=== PATIENT | female | born 1965 | race Caucasian/White ===

== ENCOUNTER 2021-01-03 16:18 | Inpatient (IN) | payer OTHER ==
[~2021-01-03] VITALS: Ht 185.4 cm; Wt 136.5 kg
[~2021-01-03 16:18] MED LIST: DEXAMETHASONE SOD PHOS INJ 4 MG/ML SDV ONE; LIDOCAINE HCL 2% LOCAL INJ 5 ML SDV VIAL INJ ONE; ONDANSETRON HCL INJ 2MG/ML 2ML 2 MG/ML VIAL ONE; POVIDONE IODINE 0.05% 0.05 % ML PO ONE; PROPOFOL IV EMULSION 10 MG/ML 20 ML VIAL ONE; SEVOFLURANE INHAL SOLN 250 ML PEN BTL ONE
[2021-01-03] MEDS ORDERED: SODIUM CHLORIDE 0.9% 1000ML 1,000 ML IV SCH (18:00)
[2021-01-03] MEDS ORDERED: ACETAMINOPHEN 325 MG TAB PO ONE (18:00)
[2021-01-03] MEDS ORDERED: PIPERACILLIN/TAZOBACTAM 3.375 GM in SODIUM CHLORIDE 0.9% 50ML 50 ML IV ONE (18:00)
[2021-01-03] MEDS ORDERED: ACETAMINOPHEN 325 MG TAB ONE (18:06)
[2021-01-03] MEDS ORDERED: SODIUM CHLORIDE 0.9% 50ML 50 ML ONE (18:06)
[2021-01-03] MEDS ORDERED: IBUPROFEN 400 MG TAB PO STA (18:07)
[2021-01-03] MEDS ORDERED: SODIUM CHLORIDE 0.9% 250ML 250 ML ONE (18:07)
[2021-01-03] MEDS ORDERED: PIPERACILLIN/TAZOBACTAM 3.375 GM VIAL ONE (18:07)
[2021-01-03] MEDS ORDERED: SODIUM CHLORIDE 0.9% 1000ML 1,000 ML ONE (18:07)
[2021-01-03] MEDS ORDERED: Vancomycin IV 1 GM VIAL ONE (18:08)
[2021-01-03] MEDS ORDERED: IBUPROFEN 400 MG TAB ONE (18:14)
[2021-01-03] MEDS: Vancomycin IV 1 GM in SODIUM CHLORIDE 0.9% 250ML 250 ML IV SCH (18:47)
[2021-01-03] MEDS ORDERED: INSULIN REGULAR, HUMAN 100 UNIT/1 ML SQ ONE (20:00)
[2021-01-03 22:22] VITALS: BP 141/73
[2021-01-03] MEDS ORDERED: DEXTROSE 50% SYRINGE 50 ML IV PRN (22:30)
[2021-01-03 22:34] VITALS: BP 141/73
[2021-01-03 23:00] VITALS: BP 141/73
[2021-01-04] VITALS (8 sets, daily range): BP systolic 128–164; BP diastolic 59–77
[2021-01-04] MEDS: SODIUM CHLORIDE 0.9% 1000ML 1,000 ML IV SCH ×3 (00:07→11:15)
[2021-01-04] MEDS: INSULIN LISPRO 100 UNIT/1 ML 3ML VIAL SQ SCH ×5 (00:08→21:15)
[2021-01-04] MEDS ORDERED: LOSARTAN POTAS100 MG PO (02:14)
[2021-01-04] MEDS ORDERED: METOPROLOL TART25 MG PO (02:14)
[2021-01-04] MEDS ORDERED: TRICOR145 MG PO (02:14)
[2021-01-04] MEDS ORDERED: SIMVASTATIN40 MG PO (02:14)
[2021-01-04] MEDS ORDERED: ASPIRIN81 MG PO (02:14)
[2021-01-04] MEDS ORDERED: BUPROPION HCL150 M2 PO (02:14)
[2021-01-04] MEDS ORDERED: METFORMIN HCL500 M2 PO (02:14)
[2021-01-04] MEDS: Vancomycin IV 1 GM in SODIUM CHLORIDE 0.9% 250ML 250 ML IV SCH ×2 (06:50→17:15)
[2021-01-04] MEDS: METFORMIN HCL 500 MG TAB CR PO SCH ×2 (08:00→16:27)
[2021-01-04 09:47] LABS: BASOPHILS # (AUTO) 0.1 (0.0-0.1); BASOPHILS % 0.3 % (0.0-1.0); EOSINOPHILS # (AUTO) 0.1 (0.0-0.4); EOSINOPHILS % 0.5 % (0.0-6.0); HEMATOCRIT 40.6 % (34.2-44.1); HEMOGLOBIN 13.3 g/dL (12.0-16.0); LYMPHOCYTES # (AUTO) 1.2 (1.0-3.2); LYMPHOCYTES % 7.6 % (18.0-39.1); MEAN CORPUSCULAR HEMOGLOBIN 29.5 pg (28-32); MEAN CORPUSCULAR HGB CONC 32.8 g/dL (31-35); MONOCYTES # (AUTO) 1.2 (0.2-0.8); MONOCYTES % 7.5 % (4.4-11.3); NEUTROPHILS % 83.2 % (38.7-80.0); PLATELET COUNT 216 x10e3/uL (140-360); RED BLOOD COUNT 4.51 x10e6/uL (3.6-5.1); RED CELL DISTRIBUTION WIDTH 11.9 % (11.7-14.4)
[2021-01-04 10:07] LABS: ANION GAP 18.4 mmol/L (8-16); CALCIUM 9.5 mg/dL (8.4-10.2); CREATININE, SERUM 0.99 mg/dL (0.57-1.11); POTASSIUM 4.4 mmol/L (3.5-5.1)
[2021-01-04] MEDS: INSULIN GLARGINE 100 UNITS/ML VIAL SQ SCH (10:30)
[2021-01-04] MEDS: SALMETEROL/FLUTICASONE 250/50 INH SCH ×2 (13:30→19:46)
[2021-01-04] MEDS: ACETAMINOPHEN 325 MG TAB PO PRN (13:31)
[2021-01-04] MEDS: PIPERACILLIN/TAZOBACTAM 3.375 GM in SODIUM CHLORIDE 0.9% 50ML 50 ML IV SCH ×2 (14:00→21:53)
[2021-01-04] MEDS: BUPROPION HCL SR 150 MG TAB PO SCH (16:59)
[2021-01-04] MEDS: ENOXAPARIN SOD INJ 40 MG/0.4 ML SYR SC SCH (17:00)
[2021-01-04] MEDS: METOPROLOL TARTRATE 25 MG TAB PO SCH (17:00)
[2021-01-04] MEDS: HYDROCODONE/APAP 5MG-325MG TAB PO PRN (18:28)
[2021-01-04] MEDS ORDERED: LACTATED RINGER'S 1,000 ML INJ ONE (19:15)
[2021-01-04] MEDS ORDERED: LOSARTAN POTASSIUM 100 MG TAB PO ONE (19:15)
[2021-01-04] MEDS: SIMVASTATIN 40 MG TAB PO SCH (21:50)
[2021-01-05] VITALS (8 sets, daily range): BP systolic 114–147; BP diastolic 59–82
[2021-01-05] MEDS: HYDROCODONE/APAP 5MG-325MG TAB PO PRN (00:30)
[2021-01-05 05:30] LABS: BASOPHILS # (AUTO) 0.1 (0.0-0.1); BASOPHILS % 0.4 % (0.0-1.0); EOSINOPHILS # (AUTO) 0.2 (0.0-0.4); EOSINOPHILS % 1.4 % (0.0-6.0); HEMATOCRIT 38.3 % (34.2-44.1); HEMOGLOBIN 12.7 g/dL (12.0-16.0); LYMPHOCYTES # (AUTO) 1.8 (1.0-3.2); LYMPHOCYTES % 15.2 % (18.0-39.1); MEAN CORPUSCULAR HEMOGLOBIN 29.8 pg (28-32); MEAN CORPUSCULAR HGB CONC 33.2 g/dL (31-35); MEAN CORPUSCULAR VOLUME 89.9 fL (81-99); MONOCYTES # (AUTO) 1.4 (0.2-0.8); MONOCYTES % 11.7 % (4.4-11.3); NEUTROPHILS # (AUTO) 8.5 (2.1-6.9); NEUTROPHILS % 70.2 % (38.7-80.0); PLATELET COUNT 202 x10e3/uL (140-360); RED BLOOD COUNT 4.26 x10e6/uL (3.6-5.1); RED CELL DISTRIBUTION WIDTH 11.9 % (11.7-14.4)
[2021-01-05 06:05] LABS: CALCIUM 8.8 mg/dL (8.4-10.2); CREATININE, SERUM 0.88 mg/dL (0.57-1.11)
[2021-01-05] MEDS: PIPERACILLIN/TAZOBACTAM 3.375 GM in SODIUM CHLORIDE 0.9% 50ML 50 ML IV SCH ×2 (06:15→14:00)
[2021-01-05] MEDS ORDERED: SODIUM CHLORIDE 0.9% 50ML 50 ML ONE (06:16)
[2021-01-05] MEDS: Vancomycin IV 1 GM in SODIUM CHLORIDE 0.9% 250ML 250 ML IV SCH ×2 (06:54→17:31)
[2021-01-05] MEDS: INSULIN LISPRO 100 UNIT/1 ML 3ML VIAL SQ SCH ×4 (07:30→21:30)
[2021-01-05] MEDS: METFORMIN HCL 500 MG TAB CR PO SCH (08:00)
[2021-01-05] MEDS: ACETAMINOPHEN 325 MG TAB PO PRN (08:15)
[2021-01-05] MEDS: METOPROLOL TARTRATE 25 MG TAB PO SCH ×2 (09:00→17:00)
[2021-01-05] MEDS: BUPROPION HCL SR 150 MG TAB PO SCH ×2 (09:00→17:00)
[2021-01-05] MEDS: FENOFIBRATE 134 MG TAB PO SCH (09:00)
[2021-01-05] MEDS: LOSARTAN POTASSIUM 100 MG TAB PO SCH (09:00)
[2021-01-05] MEDS: ASPIRIN 81 MG CHEW TAB PO SCH (09:00)
[2021-01-05] MEDS: INSULIN GLARGINE 100 UNITS/ML VIAL SQ SCH (09:00)
[2021-01-05] MEDS ORDERED: CHOLESTYRAMINE 4 GM PACKET PO ONE (16:30)
[2021-01-05] MEDS: ENOXAPARIN SOD INJ 40 MG/0.4 ML SYR SC SCH (17:00)
[2021-01-05] MEDS: SALMETEROL/FLUTICASONE 250/50 INH SCH (19:42)
[2021-01-05] MEDS ORDERED: INSULIN GLARGINE 100 UNITS/ML VIAL SQ ONE (20:00)
[2021-01-05] MEDS: SIMVASTATIN 40 MG TAB PO SCH (22:00)
[2021-01-05] MEDS: METRONIDAZOLE 500MG/NS 100ML 100 ML IV SCH (22:10)
[2021-01-05] MEDS: CEFEPIME 1 GM in SODIUM CHLORIDE 0.9% 50ML 50 ML IV SCH (23:20)
[2021-01-06] VITALS (8 sets, daily range): BP systolic 116–149; BP diastolic 55–85
[2021-01-06 05:10] LABS: BASOPHILS # (AUTO) 0.1 (0.0-0.1); BASOPHILS % 0.5 % (0.0-1.0); EOSINOPHILS # (AUTO) 0.2 (0.0-0.4); EOSINOPHILS % 1.5 % (0.0-6.0); HEMATOCRIT 36.9 % (34.2-44.1); HEMOGLOBIN 12.1 g/dL (12.0-16.0); LYMPHOCYTES % 18.8 % (18.0-39.1); MEAN CORPUSCULAR HEMOGLOBIN 29.4 pg (28-32); MEAN CORPUSCULAR HGB CONC 32.8 g/dL (31-35); MEAN CORPUSCULAR VOLUME 89.6 fL (81-99); MONOCYTES # (AUTO) 1.2 (0.2-0.8); MONOCYTES % 11.4 % (4.4-11.3); NEUTROPHILS # (AUTO) 7.3 (2.1-6.9); NEUTROPHILS % 67.2 % (38.7-80.0); PLATELET COUNT 215 x10e3/uL (140-360); RED BLOOD COUNT 4.12 x10e6/uL (3.6-5.1); RED CELL DISTRIBUTION WIDTH 11.9 % (11.7-14.4)
[2021-01-06] MEDS: METRONIDAZOLE 500MG/NS 100ML 100 ML IV SCH ×3 (05:19→21:25)
[2021-01-06 05:35] LABS: INR 1.05; PROTHROMBIN TIME 13.9 seconds (11.9-14.5)
[2021-01-06 05:36] LABS: PARTIAL THROMBOPLASTIN TIME 23.7 seconds (23.8-35.5)
[2021-01-06 05:43] LABS: ANION GAP 13.9 mmol/L (8-16); CALCIUM 8.6 mg/dL (8.4-10.2); CREATININE, SERUM 0.77 mg/dL (0.57-1.11); POTASSIUM 3.9 mmol/L (3.5-5.1)
[2021-01-06] MEDS: ACETAMINOPHEN 325 MG TAB PO PRN (06:00)
[2021-01-06] MEDS: CEFEPIME 1 GM in SODIUM CHLORIDE 0.9% 50ML 50 ML IV SCH ×3 (06:25→21:25)
[2021-01-06] MEDS: Vancomycin IV 1 GM in SODIUM CHLORIDE 0.9% 250ML 250 ML IV SCH ×2 (06:43→18:00)
[2021-01-06] MEDS: INSULIN LISPRO 100 UNIT/1 ML 3ML VIAL SQ SCH ×4 (07:30→21:00)
[2021-01-06 08:27] LABS: EOSINOPHILS % (MANUAL) 3 % (0-7); LYMPHOCYTES % (MANUAL) 20 % (19-48); MONOCYTES % (MANUAL) 11 % (3.4-9.0); NEUTROPHILS % (MANUAL) 65 % (40-74)
[2021-01-06 08:30] LABS: PLATELET ESTIMATE ADEQUATE; PLATELET MORPHOLOGY COMMENT NORMAL; RBC MORPHOLOGY COMMENT NORMAL
[2021-01-06] MEDS: INSULIN GLARGINE 100 UNITS/ML VIAL SQ SCH ×2 (08:30→21:00)
[2021-01-06] MEDS: ASPIRIN 81 MG CHEW TAB PO SCH (09:00)
[2021-01-06] MEDS: METOPROLOL TARTRATE 25 MG TAB PO SCH ×2 (09:00→17:33)
[2021-01-06] MEDS: LOSARTAN POTASSIUM 100 MG TAB PO SCH (09:00)
[2021-01-06] MEDS: BUPROPION HCL SR 150 MG TAB PO SCH ×2 (09:00→17:32)
[2021-01-06] MEDS: METFORMIN HCL 500 MG TAB CR PO SCH (09:00)
[2021-01-06] MEDS: FENOFIBRATE 134 MG TAB PO SCH (09:00)
[2021-01-06] MEDS: LACTOBACILLUS ACIDOPHILUS CAPSULE PO SCH ×2 (12:00→16:36)
[2021-01-06] MEDS ORDERED: GADOBENATE DIMEGLUMINE 1 ML IV ONE (13:34)
[2021-01-06] MEDS: ENOXAPARIN SOD INJ 40 MG/0.4 ML SYR SC SCH (17:32)
[2021-01-06] MEDS ORDERED: POVIDONE IODINE 10% 120 ML BTL EXT PRN (19:00)
[2021-01-06] MEDS: SIMVASTATIN 40 MG TAB PO SCH (21:00)
[2021-01-06] MEDS: HYDROCODONE/APAP 5MG-325MG TAB PO PRN (21:49)
[2021-01-07] VITALS (8 sets, daily range): BP systolic 138–157; BP diastolic 60–95
[2021-01-07 05:01] LABS: BASOPHILS # (AUTO) 0.1 (0.0-0.1); BASOPHILS % 0.5 % (0.0-1.0); EOSINOPHILS # (AUTO) 0.2 (0.0-0.4); EOSINOPHILS % 2.1 % (0.0-6.0); HEMATOCRIT 36.8 % (34.2-44.1); LYMPHOCYTES # (AUTO) 2.4 (1.0-3.2); LYMPHOCYTES % 23.2 % (18.0-39.1); MEAN CORPUSCULAR HEMOGLOBIN 29.2 pg (28-32); MEAN CORPUSCULAR HGB CONC 32.6 g/dL (31-35); MEAN CORPUSCULAR VOLUME 89.5 fL (81-99); MONOCYTES # (AUTO) 0.9 (0.2-0.8); MONOCYTES % 8.7 % (4.4-11.3); NEUTROPHILS # (AUTO) 6.6 (2.1-6.9); NEUTROPHILS % 64.5 % (38.7-80.0); PLATELET COUNT 227 x10e3/uL (140-360); RED BLOOD COUNT 4.11 x10e6/uL (3.6-5.1); RED CELL DISTRIBUTION WIDTH 11.9 % (11.7-14.4)
[2021-01-07] MEDS: CEFEPIME 1 GM in SODIUM CHLORIDE 0.9% 50ML 50 ML IV SCH (05:25)
[2021-01-07] MEDS: METRONIDAZOLE 500MG/NS 100ML 100 ML IV SCH (05:25)
[2021-01-07 05:28] LABS: ANION GAP 12.9 mmol/L (8-16); CALCIUM 8.7 mg/dL (8.4-10.2); CREATININE, SERUM 0.79 mg/dL (0.57-1.11); POTASSIUM 3.9 mmol/L (3.5-5.1)
[2021-01-07] MEDS: Vancomycin IV 1 GM in SODIUM CHLORIDE 0.9% 250ML 250 ML IV SCH (06:00)
[2021-01-07 07:12] LABS: EOSINOPHILS % (MANUAL) 1 % (0-7); LYMPHOCYTES % (MANUAL) 17 % (19-48); MONOCYTES % (MANUAL) 8 % (3.4-9.0); MYELOCYTES % (MANUAL) 2 % (0-0); NEUTROPHILS % (MANUAL) 68 % (40-74); PLATELET ESTIMATE ADEQUATE; PLATELET MORPHOLOGY COMMENT NORMAL; RBC MORPHOLOGY COMMENT NORMAL
[2021-01-07] MEDS: SALMETEROL/FLUTICASONE 250/50 INH SCH (07:20)
[2021-01-07] MEDS: ASPIRIN 81 MG CHEW TAB PO SCH (08:45)
[2021-01-07] MEDS: METFORMIN HCL 500 MG TAB CR PO SCH (08:46)
[2021-01-07] MEDS: LOSARTAN POTASSIUM 100 MG TAB PO SCH (08:46)
[2021-01-07] MEDS: METOPROLOL TARTRATE 25 MG TAB PO SCH ×2 (08:47→16:33)
[2021-01-07] MEDS: LACTOBACILLUS ACIDOPHILUS CAPSULE PO SCH ×2 (08:47→16:33)
[2021-01-07] MEDS: BUPROPION HCL SR 150 MG TAB PO SCH ×2 (08:47→16:33)
[2021-01-07] MEDS: FENOFIBRATE 134 MG TAB PO SCH (08:49)
[2021-01-07] MEDS: ACETAMINOPHEN 325 MG TAB PO PRN (09:04)
[2021-01-07] MEDS: COLLAGENASE OINTMENT 30 GM TUBE TP SCH (09:07)
[2021-01-07] MEDS: INSULIN LISPRO 100 UNIT/1 ML 3ML VIAL SQ SCH ×4 (10:24→21:51)
[2021-01-07] MEDS: INSULIN GLARGINE 100 UNITS/ML VIAL SQ SCH ×2 (10:25→21:00)
[2021-01-07] MEDS: ENOXAPARIN SOD INJ 40 MG/0.4 ML SYR SC SCH (16:33)
[2021-01-07] MEDS: SIMVASTATIN 40 MG TAB PO SCH (20:43)
[2021-01-08] VITALS (8 sets, daily range): BP systolic 115–145; BP diastolic 52–82
[2021-01-08 05:22] LABS: BASOPHILS # (AUTO) 0.1 (0.0-0.1); BASOPHILS % 0.5 % (0.0-1.0); EOSINOPHILS # (AUTO) 0.2 (0.0-0.4); HEMATOCRIT 36.4 % (34.2-44.1); HEMOGLOBIN 12.1 g/dL (12.0-16.0); LYMPHOCYTES # (AUTO) 2.9 (1.0-3.2); LYMPHOCYTES % 23.7 % (18.0-39.1); MEAN CORPUSCULAR HEMOGLOBIN 29.4 pg (28-32); MEAN CORPUSCULAR HGB CONC 33.2 g/dL (31-35); MEAN CORPUSCULAR VOLUME 88.6 fL (81-99); MONOCYTES % 8.3 % (4.4-11.3); NEUTROPHILS # (AUTO) 7.8 (2.1-6.9); NEUTROPHILS % 64.1 % (38.7-80.0); PLATELET COUNT 254 x10e3/uL (140-360); RED BLOOD COUNT 4.11 x10e6/uL (3.6-5.1); RED CELL DISTRIBUTION WIDTH 11.9 % (11.7-14.4)
[2021-01-08 05:51] LABS: ANION GAP 14.9 mmol/L (8-16); CALCIUM 8.9 mg/dL (8.4-10.2); CREATININE, SERUM 0.75 mg/dL (0.57-1.11); MAGNESIUM 1.8 MG/DL (1.3-2.1); POTASSIUM 3.9 mmol/L (3.5-5.1)
[2021-01-08] MEDS: INSULIN LISPRO 100 UNIT/1 ML 3ML VIAL SQ SCH ×4 (07:30→21:00)
[2021-01-08] MEDS: METOPROLOL TARTRATE 25 MG TAB PO SCH ×2 (08:10→17:30)
[2021-01-08] MEDS: INSULIN GLARGINE 100 UNITS/ML VIAL SQ SCH (08:10)
[2021-01-08] MEDS: LOSARTAN POTASSIUM 100 MG TAB PO SCH (08:10)
[2021-01-08] MEDS ORDERED: CEFTRIAXONE 2 GM in SODIUM CHLORIDE 0.9% 100 ML IV SCH (09:00)
[2021-01-08] MEDS: COLLAGENASE OINTMENT 30 GM TUBE TP SCH (09:00)
[2021-01-08] MEDS: ASPIRIN 81 MG CHEW TAB PO SCH (09:00)
[2021-01-08] MEDS: FENOFIBRATE 134 MG TAB PO SCH (09:00)
[2021-01-08] MEDS: BUPROPION HCL SR 150 MG TAB PO SCH ×2 (09:00→17:30)
[2021-01-08] MEDS: LACTOBACILLUS ACIDOPHILUS CAPSULE PO SCH ×2 (09:00→17:30)
[2021-01-08] MEDS: SALMETEROL/FLUTICASONE 250/50 INH SCH (10:05)
[2021-01-08] MEDS: CLINDAMYCIN PHOS 900MG/ 50ML 50 ML IV SCH ×3 (12:00→23:51)
[2021-01-08] MEDS ORDERED: INSULIN REGULAR, HUMAN 100 UNIT/1 ML ONE (13:07)
[2021-01-08] MEDS: CHOLESTYRAMINE 4 GM PACKET PO SCH (17:30)
[2021-01-08] MEDS: METFORMIN HCL 500 MG TAB CR PO SCH (17:30)
[2021-01-08] MEDS: ENOXAPARIN SOD INJ 40 MG/0.4 ML SYR SC SCH (17:30)
[2021-01-08] MEDS: SIMVASTATIN 40 MG TAB PO SCH (21:38)
[2021-01-09] VITALS (8 sets, daily range): BP systolic 121–160; BP diastolic 71–82
[2021-01-09] MEDS: HYDROCODONE/APAP 5MG-325MG TAB PO PRN (00:40)
[2021-01-09] MEDS: SALMETEROL/FLUTICASONE 250/50 INH SCH (06:00)
[2021-01-09 06:23] LABS: BASOPHILS % 0.3 % (0.0-1.0); EOSINOPHILS # (AUTO) 0.1 (0.0-0.4); EOSINOPHILS % 0.8 % (0.0-6.0); HEMATOCRIT 34.5 % (34.2-44.1); HEMOGLOBIN 11.4 g/dL (12.0-16.0); LYMPHOCYTES # (AUTO) 2.7 (1.0-3.2); LYMPHOCYTES % 21.4 % (18.0-39.1); MEAN CORPUSCULAR HEMOGLOBIN 29.3 pg (28-32); MEAN CORPUSCULAR VOLUME 88.7 fL (81-99); MONOCYTES # (AUTO) 1.1 (0.2-0.8); MONOCYTES % 8.6 % (4.4-11.3); NEUTROPHILS # (AUTO) 8.6 (2.1-6.9); NEUTROPHILS % 67.4 % (38.7-80.0); PLATELET COUNT 259 x10e3/uL (140-360); RED BLOOD COUNT 3.89 x10e6/uL (3.6-5.1); RED CELL DISTRIBUTION WIDTH 11.8 % (11.7-14.4)
[2021-01-09] MEDS: CLINDAMYCIN PHOS 900MG/ 50ML 50 ML IV SCH ×4 (06:44→23:41)
[2021-01-09 06:50] LABS: ANION GAP 13.3 mmol/L (8-16); CREATININE, SERUM 0.8 mg/dL (0.57-1.11); POTASSIUM 4.3 mmol/L (3.5-5.1)
[2021-01-09] MEDS: LOSARTAN POTASSIUM 100 MG TAB PO SCH (08:20)
[2021-01-09] MEDS: ASPIRIN 81 MG CHEW TAB PO SCH (08:20)
[2021-01-09] MEDS: BUPROPION HCL SR 150 MG TAB PO SCH ×2 (08:20→17:00)
[2021-01-09] MEDS: METOPROLOL TARTRATE 25 MG TAB PO SCH ×2 (08:20→17:10)
[2021-01-09] MEDS: LACTOBACILLUS ACIDOPHILUS CAPSULE PO SCH ×2 (08:20→17:00)
[2021-01-09] MEDS: CHOLESTYRAMINE 4 GM PACKET PO SCH (08:20)
[2021-01-09] MEDS: METFORMIN HCL 500 MG TAB CR PO SCH (08:20)
[2021-01-09] MEDS: INSULIN LISPRO 100 UNIT/1 ML 3ML VIAL SQ SCH ×4 (08:20→21:13)
[2021-01-09] MEDS: FENOFIBRATE 134 MG TAB PO SCH (09:00)
[2021-01-09] MEDS: COLLAGENASE OINTMENT 30 GM TUBE TP SCH (09:00)
[2021-01-09] MEDS: AMPICILLIN SOD 2 GM/NS 100ML 100 ML IV SCH ×2 (14:51→21:45)
[2021-01-09] MEDS: ENOXAPARIN SOD INJ 40 MG/0.4 ML SYR SC SCH (17:00)
[2021-01-09] MEDS ORDERED: INSULIN GLARGINE 100 UNITS/ML VIAL SQ SCH (21:00)
[2021-01-09] MEDS: INSULIN GLARGINE 100 UNITS/ML VIAL SQ SCH (21:00)
[2021-01-09] MEDS: SIMVASTATIN 40 MG TAB PO SCH (21:30)
[2021-01-09] MEDS: ACETAMINOPHEN 325 MG TAB PO PRN (22:21)
[2021-01-10] VITALS (8 sets, daily range): BP systolic 122–166; BP diastolic 62–81
[2021-01-10] MEDS: CLINDAMYCIN PHOS 900MG/ 50ML 50 ML IV SCH ×3 (05:39→17:15)
[2021-01-10] MEDS: SALMETEROL/FLUTICASONE 250/50 INH SCH (06:00)
[2021-01-10] MEDS: AMPICILLIN SOD 2 GM/NS 100ML 100 ML IV SCH ×3 (06:17→22:53)
[2021-01-10] MEDS ORDERED: HEPARIN SOD/SOD CHLORIDE 1,000 ML ONE (06:41)
[2021-01-10] MEDS: INSULIN LISPRO 100 UNIT/1 ML 3ML VIAL SQ SCH ×4 (07:30→21:00)
[2021-01-10] MEDS: COLLAGENASE OINTMENT 30 GM TUBE TP SCH (09:00)
[2021-01-10] MEDS: BUPROPION HCL SR 150 MG TAB PO SCH ×2 (09:00→17:00)
[2021-01-10] MEDS: METOPROLOL TARTRATE 25 MG TAB PO SCH ×2 (09:00→17:00)
[2021-01-10] MEDS: LACTOBACILLUS ACIDOPHILUS CAPSULE PO SCH ×2 (09:00→17:00)
[2021-01-10] MEDS: CHOLESTYRAMINE 4 GM PACKET PO SCH (09:00)
[2021-01-10] MEDS: ASPIRIN 81 MG CHEW TAB PO SCH (09:00)
[2021-01-10] MEDS: FENOFIBRATE 134 MG TAB PO SCH (09:00)
[2021-01-10] MEDS: LOSARTAN POTASSIUM 100 MG TAB PO SCH (09:00)
[2021-01-10] MEDS: METFORMIN HCL 500 MG TAB CR PO SCH (09:00)
[2021-01-10] MEDS: ENOXAPARIN SOD INJ 40 MG/0.4 ML SYR SC SCH (17:00)
[2021-01-10] MEDS: INSULIN GLARGINE 100 UNITS/ML VIAL SQ SCH (21:00)
[2021-01-10] MEDS: SIMVASTATIN 40 MG TAB PO SCH (21:00)
[2021-01-11] VITALS (8 sets, daily range): BP systolic 126–150; BP diastolic 63–77
[2021-01-11] MEDS: CLINDAMYCIN PHOS 900MG/ 50ML 50 ML IV SCH ×4 (00:49→17:39)
[2021-01-11] MEDS: AMPICILLIN SOD 2 GM/NS 100ML 100 ML IV SCH ×3 (06:00→21:19)
[2021-01-11 06:42] LABS: BASOPHILS % 0.3 % (0.0-1.0); EOSINOPHILS # (AUTO) 0.2 (0.0-0.4); EOSINOPHILS % 1.5 % (0.0-6.0); HEMATOCRIT 34.7 % (34.2-44.1); HEMOGLOBIN 11.6 g/dL (12.0-16.0); LYMPHOCYTES # (AUTO) 2.2 (1.0-3.2); LYMPHOCYTES % 21.7 % (18.0-39.1); MEAN CORPUSCULAR HEMOGLOBIN 29.4 pg (28-32); MEAN CORPUSCULAR HGB CONC 33.4 g/dL (31-35); MEAN CORPUSCULAR VOLUME 88.1 fL (81-99); MONOCYTES # (AUTO) 0.8 (0.2-0.8); MONOCYTES % 7.9 % (4.4-11.3); NEUTROPHILS % 67.3 % (38.7-80.0); PLATELET COUNT 262 x10e3/uL (140-360); RED BLOOD COUNT 3.94 x10e6/uL (3.6-5.1); RED CELL DISTRIBUTION WIDTH 11.8 % (11.7-14.4)
[2021-01-11 07:19] LABS: ALBUMIN 2.3 g/dL (3.5-5.0); ALBUMIN/GLOBULIN RATIO 0.5 (0.8-2.0); ANION GAP 14.2 mmol/L (8-16); CALCIUM 9.1 mg/dL (8.4-10.2); CREATININE, SERUM 0.77 mg/dL (0.57-1.11); POTASSIUM 4.2 mmol/L (3.5-5.1)
[2021-01-11] MEDS: INSULIN LISPRO 100 UNIT/1 ML 3ML VIAL SQ SCH ×4 (07:30→21:00)
[2021-01-11] MEDS: FENOFIBRATE 134 MG TAB PO SCH (08:59)
[2021-01-11] MEDS: COLLAGENASE OINTMENT 30 GM TUBE TP SCH (09:00)
[2021-01-11] MEDS: ASPIRIN 81 MG CHEW TAB PO SCH (09:15)
[2021-01-11] MEDS: METFORMIN HCL 500 MG TAB CR PO SCH (09:15)
[2021-01-11] MEDS: METOPROLOL TARTRATE 25 MG TAB PO SCH ×2 (09:15→17:39)
[2021-01-11] MEDS: LACTOBACILLUS ACIDOPHILUS CAPSULE PO SCH ×2 (09:15→17:39)
[2021-01-11] MEDS: LOSARTAN POTASSIUM 100 MG TAB PO SCH (09:15)
[2021-01-11] MEDS: CHOLESTYRAMINE 4 GM PACKET PO SCH (09:16)
[2021-01-11] MEDS: BUPROPION HCL SR 150 MG TAB PO SCH ×2 (09:16→17:39)
[2021-01-11] MEDS: SALMETEROL/FLUTICASONE 250/50 INH SCH (09:20)
[2021-01-11] MEDS: ACETAMINOPHEN 325 MG TAB PO PRN (09:21)
[2021-01-11] MEDS ORDERED: INSULIN GLARGINE 100 UNITS/ML VIAL SQ SCH (21:00)
[2021-01-11] MEDS: SIMVASTATIN 40 MG TAB PO SCH (21:00)
[2021-01-12] VITALS (7 sets, daily range): BP systolic 118–146; BP diastolic 66–85
[2021-01-12] MEDS: CLINDAMYCIN PHOS 900MG/ 50ML 50 ML IV SCH ×4 (04:45→17:49)
[2021-01-12] MEDS: AMPICILLIN SOD 2 GM/NS 100ML 100 ML IV SCH ×3 (05:08→21:01)
[2021-01-12] MEDS: INSULIN LISPRO 100 UNIT/1 ML 3ML VIAL SQ SCH ×4 (07:30→20:59)
[2021-01-12] MEDS: METFORMIN HCL 500 MG TAB CR PO SCH (08:27)
[2021-01-12] MEDS: SALMETEROL/FLUTICASONE 250/50 INH SCH (08:27)
[2021-01-12] MEDS: LOSARTAN POTASSIUM 100 MG TAB PO SCH (08:27)
[2021-01-12] MEDS: ASPIRIN 81 MG CHEW TAB PO SCH (08:27)
[2021-01-12] MEDS: LACTOBACILLUS ACIDOPHILUS CAPSULE PO SCH ×2 (08:28→17:49)
[2021-01-12] MEDS: CHOLESTYRAMINE 4 GM PACKET PO SCH (08:28)
[2021-01-12] MEDS: FENOFIBRATE 134 MG TAB PO SCH (08:28)
[2021-01-12] MEDS: METOPROLOL TARTRATE 25 MG TAB PO SCH ×2 (08:28→17:49)
[2021-01-12] MEDS: BUPROPION HCL SR 150 MG TAB PO SCH ×2 (08:28→17:49)
[2021-01-12] MEDS: COLLAGENASE OINTMENT 30 GM TUBE TP SCH (08:28)
[2021-01-12] MEDS: SIMVASTATIN 40 MG TAB PO SCH (20:11)
[2021-01-12] MEDS: INSULIN GLARGINE 100 UNITS/ML VIAL SQ SCH (21:00)
[2021-01-13] VITALS (8 sets, daily range): BP systolic 114–141; BP diastolic 64–86
[2021-01-13] MEDS: CLINDAMYCIN PHOS 900MG/ 50ML 50 ML IV SCH ×4 (00:25→17:07)
[2021-01-13] MEDS: AMPICILLIN SOD 2 GM/NS 100ML 100 ML IV SCH ×3 (05:19→22:00)
[2021-01-13] MEDS: INSULIN LISPRO 100 UNIT/1 ML 3ML VIAL SQ SCH ×4 (07:30→21:00)
[2021-01-13] MEDS: SALMETEROL/FLUTICASONE 250/50 INH SCH (08:11)
[2021-01-13] MEDS: METFORMIN HCL 500 MG TAB CR PO SCH (09:00)
[2021-01-13] MEDS: BUPROPION HCL SR 150 MG TAB PO SCH ×2 (09:00→17:00)
[2021-01-13] MEDS: LACTOBACILLUS ACIDOPHILUS CAPSULE PO SCH ×2 (09:00→17:00)
[2021-01-13] MEDS: FENOFIBRATE 134 MG TAB PO SCH (09:00)
[2021-01-13] MEDS: METOPROLOL TARTRATE 25 MG TAB PO SCH ×2 (09:00→17:00)
[2021-01-13] MEDS: CHOLESTYRAMINE 4 GM PACKET PO SCH (09:00)
[2021-01-13] MEDS: LOSARTAN POTASSIUM 100 MG TAB PO SCH (09:00)
[2021-01-13] MEDS: COLLAGENASE OINTMENT 30 GM TUBE TP SCH (09:00)
[2021-01-13] MEDS: ASPIRIN 81 MG CHEW TAB PO SCH (09:00)
[2021-01-13] MEDS: INSULIN GLARGINE 100 UNITS/ML VIAL SQ SCH (21:00)
[2021-01-13] MEDS: SIMVASTATIN 40 MG TAB PO SCH (21:00)
[2021-01-14] VITALS (8 sets, daily range): BP systolic 124–143; BP diastolic 49–80
[2021-01-14 04:56] LABS: BASOPHILS # (AUTO) 0.1 (0.0-0.1); BASOPHILS % 0.4 % (0.0-1.0); EOSINOPHILS # (AUTO) 0.2 (0.0-0.4); HEMATOCRIT 38.1 % (34.2-44.1); HEMOGLOBIN 12.4 g/dL (12.0-16.0); LYMPHOCYTES # (AUTO) 2.5 (1.0-3.2); LYMPHOCYTES % 22.4 % (18.0-39.1); MEAN CORPUSCULAR HEMOGLOBIN 29.2 pg (28-32); MEAN CORPUSCULAR HGB CONC 32.5 g/dL (31-35); MEAN CORPUSCULAR VOLUME 89.6 fL (81-99); MONOCYTES # (AUTO) 0.9 (0.2-0.8); MONOCYTES % 8.2 % (4.4-11.3); NEUTROPHILS # (AUTO) 7.4 (2.1-6.9); PLATELET COUNT 298 x10e3/uL (140-360); RED BLOOD COUNT 4.25 x10e6/uL (3.6-5.1); RED CELL DISTRIBUTION WIDTH 11.9 % (11.7-14.4)
[2021-01-14 05:09] LABS: ANION GAP 14.4 mmol/L (8-16); CALCIUM 9.5 mg/dL (8.4-10.2); CREATININE, SERUM 0.91 mg/dL (0.57-1.11); POTASSIUM 4.4 mmol/L (3.5-5.1)
[2021-01-14] MEDS: AMPICILLIN SOD 2 GM/NS 100ML 100 ML IV SCH ×3 (06:00→22:03)
[2021-01-14] MEDS: CLINDAMYCIN PHOS 900MG/ 50ML 50 ML IV SCH ×4 (06:00→18:10)
[2021-01-14] MEDS: INSULIN LISPRO 100 UNIT/1 ML 3ML VIAL SQ SCH ×4 (07:30→22:09)
[2021-01-14] MEDS: SALMETEROL/FLUTICASONE 250/50 INH SCH (08:40)
[2021-01-14] MEDS: ASPIRIN 81 MG CHEW TAB PO SCH (09:00)
[2021-01-14] MEDS: LOSARTAN POTASSIUM 100 MG TAB PO SCH (09:00)
[2021-01-14] MEDS: COLLAGENASE OINTMENT 30 GM TUBE TP SCH (09:00)
[2021-01-14] MEDS: METFORMIN HCL 500 MG TAB CR PO SCH (09:00)
[2021-01-14] MEDS: FENOFIBRATE 134 MG TAB PO SCH (09:00)
[2021-01-14] MEDS: LACTOBACILLUS ACIDOPHILUS CAPSULE PO SCH ×2 (09:00→18:10)
[2021-01-14] MEDS: BUPROPION HCL SR 150 MG TAB PO SCH ×2 (09:00→18:11)
[2021-01-14] MEDS: CHOLESTYRAMINE 4 GM PACKET PO SCH (09:00)
[2021-01-14] MEDS: METOPROLOL TARTRATE 25 MG TAB PO SCH ×2 (12:12→18:12)
[2021-01-14] MEDS: INSULIN GLARGINE 100 UNITS/ML VIAL SQ SCH ×2 (12:12→22:09)
[2021-01-14] MEDS ORDERED: SODIUM CHLORIDE 0.9% 250ML 250 ML ONE (21:42)
[2021-01-14] MEDS: SIMVASTATIN 40 MG TAB PO SCH (22:15)
[2021-01-15] VITALS (7 sets, daily range): BP systolic 123–148; BP diastolic 56–85
[2021-01-15] MEDS: CLINDAMYCIN PHOS 900MG/ 50ML 50 ML IV SCH ×4 (00:01→17:24)
[2021-01-15] MEDS: AMPICILLIN SOD 2 GM/NS 100ML 100 ML IV SCH ×3 (06:29→22:16)
[2021-01-15] MEDS: FENOFIBRATE 134 MG TAB PO SCH (09:00)
[2021-01-15] MEDS: COLLAGENASE OINTMENT 30 GM TUBE TP SCH (09:00)
[2021-01-15] MEDS: LACTOBACILLUS ACIDOPHILUS CAPSULE PO SCH ×2 (09:12→17:24)
[2021-01-15] MEDS: METFORMIN HCL 500 MG TAB CR PO SCH (09:12)
[2021-01-15] MEDS: BUPROPION HCL SR 150 MG TAB PO SCH ×2 (09:12→17:24)
[2021-01-15] MEDS: ASPIRIN 81 MG CHEW TAB PO SCH (09:12)
[2021-01-15] MEDS: CHOLESTYRAMINE 4 GM PACKET PO SCH (09:12)
[2021-01-15] MEDS: LOSARTAN POTASSIUM 100 MG TAB PO SCH (09:14)
[2021-01-15] MEDS: METOPROLOL TARTRATE 25 MG TAB PO SCH ×2 (09:15→17:25)
[2021-01-15] MEDS: SALMETEROL/FLUTICASONE 250/50 INH SCH (10:18)
[2021-01-15] MEDS: INSULIN LISPRO 100 UNIT/1 ML 3ML VIAL SQ SCH ×4 (12:14→22:15)
[2021-01-15] MEDS: INSULIN GLARGINE 100 UNITS/ML VIAL SQ SCH ×2 (12:15→22:21)
[2021-01-15] MEDS: SIMVASTATIN 40 MG TAB PO SCH (22:14)
[2021-01-16] VITALS (7 sets, daily range): BP systolic 104–161; BP diastolic 49–83
[2021-01-16] MEDS: CLINDAMYCIN PHOS 900MG/ 50ML 50 ML IV SCH ×4 (00:21→19:23)
[2021-01-16] MEDS ORDERED: SODIUM CHLORIDE 0.9% 250ML 250 ML ONE (06:02)
[2021-01-16] MEDS: AMPICILLIN SOD 2 GM/NS 100ML 100 ML IV SCH ×3 (06:06→22:27)
[2021-01-16] MEDS: SALMETEROL/FLUTICASONE 250/50 INH SCH (07:09)
[2021-01-16] MEDS: FENOFIBRATE 134 MG TAB PO SCH (08:26)
[2021-01-16] MEDS: INSULIN GLARGINE 100 UNITS/ML VIAL SQ SCH ×2 (08:30→20:15)
[2021-01-16] MEDS: INSULIN LISPRO 100 UNIT/1 ML 3ML VIAL SQ SCH ×4 (08:30→20:14)
[2021-01-16] MEDS: METFORMIN HCL 500 MG TAB CR PO SCH (08:30)
[2021-01-16] MEDS: LOSARTAN POTASSIUM 100 MG TAB PO SCH (08:31)
[2021-01-16] MEDS: ASPIRIN 81 MG CHEW TAB PO SCH (08:31)
[2021-01-16] MEDS: METOPROLOL TARTRATE 25 MG TAB PO SCH ×2 (08:32→16:19)
[2021-01-16] MEDS: LACTOBACILLUS ACIDOPHILUS CAPSULE PO SCH ×2 (08:32→16:19)
[2021-01-16] MEDS: BUPROPION HCL SR 150 MG TAB PO SCH ×2 (08:32→16:19)
[2021-01-16] MEDS: CHOLESTYRAMINE 4 GM PACKET PO SCH (08:55)
[2021-01-16] MEDS: COLLAGENASE OINTMENT 30 GM TUBE TP SCH (09:00)
[2021-01-16] MEDS: SIMVASTATIN 40 MG TAB PO SCH (20:12)
[2021-01-17] VITALS (8 sets, daily range): BP systolic 104–131; BP diastolic 56–75
[2021-01-17] MEDS: CLINDAMYCIN PHOS 900MG/ 50ML 50 ML IV SCH ×4 (02:01→22:04)
[2021-01-17] MEDS: AMPICILLIN SOD 2 GM/NS 100ML 100 ML IV SCH ×3 (05:08→22:04)
[2021-01-17] MEDS: SALMETEROL/FLUTICASONE 250/50 INH SCH (07:35)
[2021-01-17] MEDS: ASPIRIN 81 MG CHEW TAB PO SCH (08:35)
[2021-01-17] MEDS: FENOFIBRATE 134 MG TAB PO SCH (08:35)
[2021-01-17] MEDS: LOSARTAN POTASSIUM 100 MG TAB PO SCH (08:36)
[2021-01-17] MEDS: METFORMIN HCL 500 MG TAB CR PO SCH (08:36)
[2021-01-17] MEDS: METOPROLOL TARTRATE 25 MG TAB PO SCH ×2 (08:36→16:46)
[2021-01-17] MEDS: INSULIN GLARGINE 100 UNITS/ML VIAL SQ SCH ×2 (08:36→22:03)
[2021-01-17] MEDS: INSULIN LISPRO 100 UNIT/1 ML 3ML VIAL SQ SCH ×4 (08:36→22:04)
[2021-01-17] MEDS: BUPROPION HCL SR 150 MG TAB PO SCH ×2 (08:37→16:46)
[2021-01-17] MEDS: LACTOBACILLUS ACIDOPHILUS CAPSULE PO SCH ×2 (08:37→16:45)
[2021-01-17] MEDS: COLLAGENASE OINTMENT 30 GM TUBE TP SCH (09:00)
[2021-01-17] MEDS: CHOLESTYRAMINE 4 GM PACKET PO SCH (10:09)
[2021-01-17] MEDS: SIMVASTATIN 40 MG TAB PO SCH (22:04)
[2021-01-18] VITALS (8 sets, daily range): BP systolic 109–162; BP diastolic 69–85
[2021-01-18] MEDS: CLINDAMYCIN PHOS 900MG/ 50ML 50 ML IV SCH ×4 (01:49→20:20)
[2021-01-18] MEDS: AMPICILLIN SOD 2 GM/NS 100ML 100 ML IV SCH ×3 (05:13→21:48)
[2021-01-18] MEDS: SALMETEROL/FLUTICASONE 250/50 INH SCH (06:00)
[2021-01-18] MEDS: INSULIN LISPRO 100 UNIT/1 ML 3ML VIAL SQ SCH ×4 (07:30→21:42)
[2021-01-18] MEDS: COLLAGENASE OINTMENT 30 GM TUBE TP SCH (09:00)
[2021-01-18] MEDS: FENOFIBRATE 134 MG TAB PO SCH (09:00)
[2021-01-18] MEDS: ASPIRIN 81 MG CHEW TAB PO SCH (10:20)
[2021-01-18] MEDS: METFORMIN HCL 500 MG TAB CR PO SCH (10:20)
[2021-01-18] MEDS: LOSARTAN POTASSIUM 100 MG TAB PO SCH (10:20)
[2021-01-18] MEDS: BUPROPION HCL SR 150 MG TAB PO SCH ×2 (10:23→16:40)
[2021-01-18] MEDS: CHOLESTYRAMINE 4 GM PACKET PO SCH (10:23)
[2021-01-18] MEDS: LACTOBACILLUS ACIDOPHILUS CAPSULE PO SCH ×2 (10:23→16:40)
[2021-01-18] MEDS: INSULIN GLARGINE 100 UNITS/ML VIAL SQ SCH ×2 (10:23→21:42)
[2021-01-18] MEDS: METOPROLOL TARTRATE 25 MG TAB PO SCH ×2 (10:23→16:40)
[2021-01-18] MEDS: SIMVASTATIN 40 MG TAB PO SCH (21:40)
[2021-01-19] VITALS (7 sets, daily range): BP systolic 108–126; BP diastolic 62–82
[2021-01-19] MEDS: CLINDAMYCIN PHOS 900MG/ 50ML 50 ML IV SCH ×4 (01:56→19:56)
[2021-01-19] MEDS: AMPICILLIN SOD 2 GM/NS 100ML 100 ML IV SCH (05:38)
[2021-01-19] MEDS: INSULIN LISPRO 100 UNIT/1 ML 3ML VIAL SQ SCH ×4 (07:30→20:58)
[2021-01-19] MEDS: SALMETEROL/FLUTICASONE 250/50 INH SCH (08:34)
[2021-01-19] MEDS: INSULIN GLARGINE 100 UNITS/ML VIAL SQ SCH ×2 (09:00→20:58)
[2021-01-19] MEDS: METOPROLOL TARTRATE 25 MG TAB PO SCH ×2 (09:00→17:00)
[2021-01-19] MEDS: FENOFIBRATE 134 MG TAB PO SCH (09:00)
[2021-01-19] MEDS: LOSARTAN POTASSIUM 100 MG TAB PO SCH (09:00)
[2021-01-19] MEDS: ASPIRIN 81 MG CHEW TAB PO SCH (09:38)
[2021-01-19] MEDS: METFORMIN HCL 500 MG TAB CR PO SCH (09:39)
[2021-01-19] MEDS: LACTOBACILLUS ACIDOPHILUS CAPSULE PO SCH ×2 (09:39→17:29)
[2021-01-19] MEDS: CHOLESTYRAMINE 4 GM PACKET PO SCH (09:41)
[2021-01-19] MEDS: BUPROPION HCL SR 150 MG TAB PO SCH ×2 (09:46→17:29)
[2021-01-19] MEDS: COLLAGENASE OINTMENT 30 GM TUBE TP SCH (09:53)
[2021-01-19] MEDS: SIMVASTATIN 40 MG TAB PO SCH (20:54)
[2021-01-20] VITALS (9 sets, daily range): BP systolic 117–141; BP diastolic 55–82
[2021-01-20] MEDS: CLINDAMYCIN PHOS 900MG/ 50ML 50 ML IV SCH ×4 (01:10→19:00)
[2021-01-20] MEDS: SALMETEROL/FLUTICASONE 250/50 INH SCH (07:10)
[2021-01-20] MEDS: ASPIRIN 81 MG CHEW TAB PO SCH (10:22)
[2021-01-20] MEDS: METOPROLOL TARTRATE 25 MG TAB PO SCH ×2 (10:25→16:44)
[2021-01-20] MEDS: LOSARTAN POTASSIUM 100 MG TAB PO SCH (10:25)
[2021-01-20] MEDS: METFORMIN HCL 500 MG TAB CR PO SCH (10:25)
[2021-01-20] MEDS: FENOFIBRATE 134 MG TAB PO SCH (10:25)
[2021-01-20] MEDS: LACTOBACILLUS ACIDOPHILUS CAPSULE PO SCH ×2 (10:25→16:44)
[2021-01-20] MEDS: COLLAGENASE OINTMENT 30 GM TUBE TP SCH (10:26)
[2021-01-20] MEDS: CHOLESTYRAMINE 4 GM PACKET PO SCH (10:26)
[2021-01-20] MEDS: BUPROPION HCL SR 150 MG TAB PO SCH ×2 (10:26→16:44)
[2021-01-20] MEDS: INSULIN LISPRO 100 UNIT/1 ML 3ML VIAL SQ SCH ×4 (11:49→20:34)
[2021-01-20] MEDS: INSULIN GLARGINE 100 UNITS/ML VIAL SQ SCH ×2 (11:50→20:36)
[2021-01-20] MEDS: AMPICILLIN SOD 2 GM/NS 100ML 100 ML IV SCH ×2 (14:00→22:00)
[2021-01-20] MEDS ORDERED: AMPICILLIN SOD 2 GM/NS 100ML 2 G in AMPICILLIN SOD 2 GM/NS 100ML 100 ML IV SCH (14:00)
[2021-01-20] MEDS: SIMVASTATIN 40 MG TAB PO SCH (20:02)
[2021-01-20] MEDS ORDERED: SODIUM CHLORIDE 0.9% 250ML 250 ML ONE (20:48)
[2021-01-21] VITALS (8 sets, daily range): BP systolic 127–141; BP diastolic 70–79
[2021-01-21] MEDS: CLINDAMYCIN PHOS 900MG/ 50ML 50 ML IV SCH ×4 (00:58→19:00)
[2021-01-21] MEDS: AMPICILLIN SOD 2 GM/NS 100ML 100 ML IV SCH ×2 (06:00→14:39)
[2021-01-21] MEDS ORDERED: INSULIN GLARGINE 100 UNITS/ML VIAL SQ SCH (09:00)
[2021-01-21] MEDS: INSULIN LISPRO 100 UNIT/1 ML 3ML VIAL SQ SCH ×4 (09:39→21:00)
[2021-01-21] MEDS: ASPIRIN 81 MG CHEW TAB PO SCH (09:39)
[2021-01-21] MEDS: LOSARTAN POTASSIUM 100 MG TAB PO SCH (09:40)
[2021-01-21] MEDS: CHOLESTYRAMINE 4 GM PACKET PO SCH (09:40)
[2021-01-21] MEDS: METFORMIN HCL 500 MG TAB CR PO SCH (09:40)
[2021-01-21] MEDS: FENOFIBRATE 134 MG TAB PO SCH (09:40)
[2021-01-21] MEDS: METOPROLOL TARTRATE 25 MG TAB PO SCH ×2 (09:40→17:32)
[2021-01-21] MEDS: LACTOBACILLUS ACIDOPHILUS CAPSULE PO SCH ×2 (09:40→17:32)
[2021-01-21] MEDS: BUPROPION HCL SR 150 MG TAB PO SCH ×2 (09:40→17:32)
[2021-01-21] MEDS: COLLAGENASE OINTMENT 30 GM TUBE TP SCH (09:42)
[2021-01-21] MEDS ORDERED: AMPICILLIN SODIU2 GM IV (14:35)
[2021-01-21] MEDS ORDERED: Insulin Glargine SQ ×2 (14:35)
[2021-01-21] MEDS ORDERED: CLINDAMYCI900 MG/50 IV (14:35)
[2021-01-21] MEDS: SIMVASTATIN 40 MG TAB PO SCH (20:55)
[2021-01-21] MEDS: INSULIN GLARGINE 100 UNITS/ML VIAL SQ SCH (21:00)
== END 2021-01-21 22:26 | DRG 264 ==
LOC: FSED 17:40 → ERHOLD 19:11 → MED/SURG2 22:00
PROVIDERS: ADMIT Internal Medicine; ATTEND Internal Medicine
PROC: 0SBN0ZZ Excision of Left Metatarsal-Phalangeal Joint, Open Approach (ICD-10-PCS; 2021-01-05)
PROC: 0JBR0ZZ Excision of Left Foot Subcutaneous Tissue and Fascia, Open Approach (ICD-10-PCS; principal; 2021-01-08 11:30)
PROC: 02HV33Z Insertion of Infusion Device into Superior Vena Cava, Percutaneous Approach (ICD-10-PCS; 2021-01-17)
DX: E11.52 Type 2 diabetes mellitus with diabetic peripheral angiopathy with gangrene (principal); A48.0 Gas gangrene; K52.1 Toxic gastroenteritis and colitis; E11.621 Type 2 diabetes mellitus with foot ulcer; I10 Essential (primary) hypertension; E66.01 Morbid (severe) obesity due to excess calories; Z68.39 Body mass index [BMI] 39.0-39.9, adult; E11.65 Type 2 diabetes mellitus with hyperglycemia; G47.33 Obstructive sleep apnea (adult) (pediatric); J45.909 Unspecified asthma, uncomplicated; B95.2 Enterococcus as the cause of diseases classified elsewhere; B95.1 Streptococcus, group B, as the cause of diseases classified elsewhere; T36.95XA Adverse effect of unspecified systemic antibiotic, initial encounter; Z20.822 Contact with and (suspected) exposure to COVID-19; E11.40 Type 2 diabetes mellitus with diabetic neuropathy, unspecified; Z79.899 Other long term (current) drug therapy
CPT/HCPCS: 36415; 36569; 71045; 80048; 80053; 80202; 82948; 83036; 83605; 83735; 85025; 85610; 85730; 87040; 87071; 87075; 87186; 87205; 93925; 94664; 96367; 96372; 97139; 97605; 99251; 99284; J0692; J0696; J1100; J1650; J1815; J1817; J2001; J2405; J2543; J3370; J7030; J7050; J7121; U0002